=== PATIENT | male | born 1985 | race African-American/Black ===

== ENCOUNTER 2017-12-01 21:13 | Emergency (ER) | payer OTHER ==
[~2017-12-01] VITALS: Ht 180.3 cm; Wt 98.9 kg
[2017-12-01 21:17] VITALS: BP 134/86
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
== END 2017-12-01 22:26 ==
LOC: ERH 21:13
DX: S01.81XA Laceration without foreign body of other part of head, initial encounter (principal); S20.312A Abrasion of left front wall of thorax, initial encounter; Y09 Assault by unspecified means; Y92.009 Unspecified place in unspecified non-institutional (private) residence as the place of occurrence of the external cause; Y93.89 Activity, other specified
CPT/HCPCS: 90471; 90714; J2001